=== PATIENT | male | born 2000 | race Caucasian/White ===

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

== ENCOUNTER 2022-07-23 11:13 | Observation (INO) ==
[2022-07-23] MEDS ORDERED: ceFAZolin 2000MG 2,000 MG/15 ML SYR IV ONE (12:51)
[2022-07-23] MEDS ORDERED: ceFAZolin 2,000 MG/15 ML IV PUSH IV ONE (12:51)
--- NOTE | 2022-07-23 12:53 | History & Physical Bridge Note ---
Date of Service July 23, 2022 History & Physical Bridge Note I have examined the patient, reviewed the History & Physical and in the interval since the performance of the History & Physical I have noted the following changes of clinical significance: no changes noted OK FOR THE PLANNED PROCEDURES
[2022-07-23] MEDS ORDERED: CHLORHEXIDINE GLUCONATE 0.12% 480 ML MT ONE (13:26)
[2022-07-23] MEDS ORDERED: MIDAZOLAM HCL 1 MG/ML 2ML VIAL ONE (13:46)
[2022-07-23] MEDS ORDERED: fentaNYL citrate 100 MCG/2 ML VIAL ONE ×4 (13:46→17:40)
--- NOTE | 2022-07-23 13:52 | Anesthesiology Consultation ---
Date of Service July 23, 2022 Assessment & Plan Chart Review Chart Review: Acceptable Risk for Surgery Consults Requested none History Surgery Operation Date: 07/23/22 10:45 Proposed Procedures p Right Open Reduction Internal Zygomatic Fracture Maxillary Complex - Sharath Wright DMD Height/Weight Height: 5 ft 10 in Weight: 66.8 kg Allergies Allergy/AdvReac Type Severity Reaction Status Date / Time No Known Allergies Allergy Verified 07/23/22 11:33 Medications Home Medications Medication Instructions Recorded Confirmed Last Taken amoxicillin 875 mg-potassium 1 tab PO BID #20 tabs 07/22/22 07/23/22 07/22/22 17:30 clavulanate 125 mg tablet oxycodone 5 mg tablet 5 mg PO Q6H PRN pain #10 tabs 07/22/22 07/23/22 Unknown methylprednisolone 4 mg tablets in 4 mg PO DAILY 07/23/22 07/23/22 07/22/22 14:00 a dose pack (Medrol (Agustin)) NPO Date Last Intake of Fluids: 07/22/22 Time Last Intake of Fluids: 23:00 Date Last Intake of Solids: 07/22/22 Time Last Intake of Solids: 23:00 Past Medical History Medical History No significant past medical history Past Family History Family History Other No significant family history Past Surgical History Surgical History Rupture of rectus femoris tendon s/p fragment excision and open rectoris femoris repair (LEFT HIP WITH HARDWARE)) Social History Smoking Status: Never smoker Do You Dip or Chew Tobacco: No Hx Alcohol Use: No Hx Substance Use: No substance use type: does not use Physical Exam Vital Signs Last Vital Signs Temp 37.1 C 07/23/22 11:34 Pulse 90 07/23/22 11:34 Resp 18 07/23/22 11:34 BP 132/79 07/23/22 11:34 Pulse Ox 97 07/23/22 11:34 O2 Del Method 07/23/22 11:34
[2022-07-23] MEDS ORDERED: ATROPINE SULFATE 0.1 MG/ML 10ML SYR IV PRN ×2 (13:54→17:48)
[2022-07-23] MEDS ORDERED: ONDANSETRON INJ 2 MG/ML 2 ML VIAL IV PRN ×3 (13:54→17:48)
[2022-07-23] MEDS ORDERED: HYDROmorphone INJ 2 MG/ML SYR/VIAL IV PRN ×2 (13:54→17:48)
[2022-07-23] MEDS ORDERED: ePHEDrine sulfate 50 MG/ML AMP IV PRN ×2 (13:54→17:48)
[2022-07-23] MEDS ORDERED: PROMETHAZINE HCL 12.5 MG in SODIUM CHLORIDE 0.9% 50 ML IV PRN (13:54)
[2022-07-23] MEDS ORDERED: fentaNYL citrate 100 MCG/2 ML VIAL IV PRN (13:54)
[2022-07-23] MEDS ORDERED: BUPIVACAINE/EPINEPHRINE 0.5% 1:200,000 1.8 ML CARP ONE (14:17)
[2022-07-23] MEDS ORDERED: ARTIFICIAL TEARS OP OINT 3.5 GM TUBE ONE (14:23)
[2022-07-23] MEDS ORDERED: ONDANSETRON INJ 2 MG/ML 2 ML VIAL ONE ×2 (14:44→16:17)
[2022-07-23] MEDS ORDERED: DEXAMETHASONE SOD INJ 4 MG/ML VIAL ONE (14:44)
[2022-07-23] MEDS ORDERED: LIDOCAINE 2% MPF LOCAL 5 ML VIAL INFIL ONE (14:44)
[2022-07-23] MEDS ORDERED: ROCURONIUM BROMIDE 10 MG/ML 5 ML VIAL IV ONE (14:44)
[2022-07-23] MEDS ORDERED: PROPOFOL IV EMULSION 10 MG/ML 20 ML VIAL IV ONE (14:45)
[2022-07-23] MEDS ORDERED: SURGICEL ABSORB HEMOSTAT 2IN X 14IN TOP ONE (16:14)
[2022-07-23] MEDS ORDERED: BACITRACIN OINT 15 GM TUBE ONE (16:52)
[2022-07-23] MEDS ORDERED: SODIUM CHLORIDE 0.65% NA SOLN 45 ML (OCEAN) PRN (17:16)
[2022-07-23] MEDS ORDERED: OXYMETAZOLINE 0.05% 30 ML BTL PRN (17:16)
[2022-07-23] MEDS ORDERED: oxyCODONE HCL IR 5 MG TAB (IMMEDIATE RELEASE) PO PRN ×2 (17:21)
[2022-07-23] MEDS ORDERED: MoRPHine SULFATE 4 MG/ML 1 ML CARP\\VIAL IV PRN (17:26)
[2022-07-23] MEDS: fentaNYL citrate 100 MCG/2 ML VIAL IV PRN ×2 (17:42→17:47)
[2022-07-23] MEDS ORDERED: HYDROmorphone INJ 1 MG/ML SYRINGE ONE (17:57)
[2022-07-23] MEDS ORDERED: HYDROmorphone INJ 2 MG/ML SYR/VIAL ONE (17:59)
[2022-07-23] MEDS: D5W AND 1/2NSS + 20MEQ KCL 20 MEQ/1,000 ML BAG IV SCH (19:35)
[2022-07-23] MEDS: dexAMETHasone 6 MG in SYRINGE 0 ML IV SCH ×2 (19:37→23:12)
[2022-07-23] MEDS: KETOROLAC 30 MG/ML VIAL IV SCH ×2 (19:37→23:12)
--- NOTE | 2022-07-23 20:43 | Post Operative Brief Note ---
PG Immediate Post Op with CF Date of Surgery July 23, 2022 Pre & Post Diagnosis Operation Date: 07/23/22 10:45 Pre-Op Diagnosis: Zygomatic Fracture Post-Op Diagnosis: Zygomatic Fracture I identified the patient and participated in the time-out.: Yes Procedure Operation Date: 07/23/22 10:45 Actual Procedures p Right Open Reduction Internal Zygomatic Fracture Maxillary Complex(Right) - Sharath Wright DMD Surgeon Sharath Wright DMD Manager Business Information none Estimated Blood Loss 20 Findings Consistent with Post-Op Diagnosis complex fracture of the right ZMOC Anesthesia Type General Complications none
--- NOTE | 2022-07-23 22:15 | Anesthesiology Progress Note ---
Date of Service July 23, 2022 Anesthesia Post Procedure Vital Signs Vital Signs: Temp Pulse Pulse Resp BP BP Pulse Ox 07/23/22 21:25 36.7 C 108 H 16 167/79 H 97 07/23/22 20:27 37.3 C 87 18 163/72 H 97 07/23/22 19:30 37.3 C 66 16 168/98 H 98 07/23/22 18:52 37.1 C 86 16 168/96 H 98 07/23/22 18:25 07/23/22 18:26 37.6 C H 16 158/89 H 98 07/23/22 18:15 37.4 C 74 13 162/78 H 97 07/23/22 18:05 73 12 156/86 H 98 07/23/22 17:55 76 15 163/85 H 93 07/23/22 17:45 70 12 174/85 H 96 07/23/22 17:35 73 13 167/95 H 100 07/23/22 17:25 72 15 169/90 H 100 07/23/22 17:17 36.5 C 91 H 16 175/92 H 98 07/23/22 11:34 37.1 C 90 18 132/79 97 O2 Del Method O2 Flow Rate 07/23/22 21:25 Nasal Cannula 2 07/23/22 20:27 Nasal Cannula 2 07/23/22 19:30 Nasal Cannula 2 07/23/22 18:52 Room Air 07/23/22 18:25 Nasal Cannula 2 07/23/22 18:26 Nasal Cannula 2 07/23/22 18:15 Nasal Cannula 2 07/23/22 18:05 Nasal Cannula 2 07/23/22 17:55 Room Air 07/23/22 17:45 Oxymask 5 07/23/22 17:35 Oxymask 5 07/23/22 17:25 Oxymask 9 07/23/22 17:17 Oxymask 9 07/23/22 11:34 Room Air Pain Intensity Right Eye: Pain Intensity: 6 Right Cheek: Pain Intensity: 5 Transfer of Care Handoff Completed per policy Notes Mental Status: alert / awake / arousable Patient Amnestic to Procedure: Yes Nausea / Vomiting: adequately controlled Pain: adequately controlled Airway Patency, RR, SpO2: stable & adequate BP & HR: stable & adequate Hydration State: stable & adequate Anesthetic Complications: no major complications apparent
[2022-07-24] MEDS ORDERED: ceFAZolin 2000MG 2,000 MG/15 ML SYR IV SCH (03:30)
[2022-07-24] MEDS: D5W AND 1/2NSS + 20MEQ KCL 20 MEQ/1,000 ML BAG IV SCH (04:04)
[2022-07-24] MEDS: dexAMETHasone 6 MG in SYRINGE 0 ML IV SCH (05:40)
[2022-07-24] MEDS: KETOROLAC 30 MG/ML VIAL IV SCH (05:40)
--- NOTE | 2022-07-24 10:56 | Discharge Summary ---
Date of Service July 24, Discharge note for repair of extensive ZMOC fracture 23 hr admission VS stable OK for discharge today I called his mother and reviewed all Post Op care Excellent result, ROM improving Suture in place and covered with steri strips Tissue tone, gingival tissue--excellent Occlusion very stable with a reproducible bite. some nasal congestion as expected no nasal bleeding. Some sinus issues as expected--suggested Afrin and saline Facial alignment excellent I reviewed the Post op CT Reviewed post op care--diet, oral care, activities. Next appointment set up for: Overall excellent result from recent repair of right ZMOC fracture RTC for continued follow up Discharge Data Procedures Performed Operation Date: 07/23/22 10:45 Actual Procedures p Right Open Reduction Internal Zygomatic Fracture Maxillary Complex(Right) - Sharath Wright DMD Coding Level of Care Code D/C DAY MANAGEMENT <30 MINS
--- NOTE | 2022-07-24 11:08 | Oral/Maxillofacial Progress Nt ---
Date of Service July 24, 2022 Assessment & Plan Admission and Anticipated Discharge Date Admission Date: July 23, 2022 Subjective doing very well this AM OK for D/C reviewed all post op instructions with mother over phone CT scan looks great plates and screws -look excellent RTC 7-10 days OK for D/C Results & Data ([facility]) Vital Signs (Past 12 Hours) Vital Signs Temp Pulse Resp BP BP Pulse Ox O2 Del Method 07/24/22 11:02 37.1 C 101 H 18 114/65 158/89 H 96 07/24/22 07:04 37.1 C 101 H 18 114/65 96 Room Air 07/24/22 03:00 36.9 C 66 18 141/81 H 97 Room Air 07/23/22 23:24 36.8 C 69 18 145/85 H 98 Room Air PG Care Time/CCT Total # of Minutes Spent Total Time Spent with Patient: Total time spent is greater than 50% in coordination of care (as documented) at patient's floor/unit and/or counseling patient: Coding Level of Care Code None
--- NOTE | 2022-07-24 13:47 | CT Scan Report ---
CT SCAN OF THE FACIAL BONES WITHOUT IV CONTRAST CLINICAL HISTORY: Right zygomaticomaxillary complex fracture. Postoperative examination. COMPARISON STUDY: Facial bone CT dated 07/22/2022. TECHNIQUE: High-resolution CT scan of the facial bones is performed. Images are reviewed in the axia l, sagittal, and coronal planes. IV contrast was not administered for this examination. A dose lower ing technique was utilized adhering to the principles of ALARA. CT DOSE: 733.16 mGy.cm FINDINGS: The skeletal structures are well mineralized. Again seen is a comminuted fracture of the r ight zygomatic arch. Alignment of the fracture fragments is significantly improved. Again seen are co mminuted fractures involving the anterior, posterior, and medial holland of the right maxillary sinus. There has been partial split plate fixation along the anterior wall of the right maxillary antrum wit h improved alignment. There are persistently depressed displaced fragments of the posterior wall. The re is improved alignment of a comminuted right lateral orbital rim fracture status post buttress plat e fixation. Again seen is a comminuted fracture of the right orbital floor which extends through the orbital foramen. There is no evidence of herniation of orbital contents. There are small foci of gas within the right orbit. Right orbital contents are otherwise normal in appearance. The left bony orbi t is intact, and left orbital contents are within normal limits. The nasal bones and pterygoid plates are preserved. The mandible is intact. The temporomandibular joints are maintained. Blood products f ill the right maxillary antrum. There is trace mucosal thickening within the ethmoid sinuses, the lef t sphenoid sinus, and the sphenoid sinuses. The mastoid air cells are well pneumatized. The visualize d calvarium and upper cervical spine are maintained. Partially imaged brain parenchyma is within norm al limits. Edema/contusion is again seen overlying the right facial soft tissues. Evidence material p osterior to the right maxillary antrum on axial image #48 may represent blood products. IMPRESSION: 1. Again seen are extensive right-sided facial bone fractures status post surgical fixation as above. Alignment of the fractures has improved from previous. 2. Overlying facial soft tissue contusion/edema persists. ACT 112: Negative or not required by law. Electronically signed by: Sung Palacios M.D. 07/24/2022 1:45 PM
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
== END 2022-07-24 11:48 | disposition home or self-care (01) ==
LOC: 3N 11:13 → ASU 11:13